=== PATIENT | male | born 1950 | race Caucasian/White ===

== ENCOUNTER → 2017-09-03 | Outpatient (CLI) | payer MEDICARE, OTHER ==
[2017-09-03 12:37] LABS: ALBUMIN 3.9 GM/DL (3.2-5.2); ALBUMIN/GLOBULIN RATIO 1.11 (1.00-1.93); ALKALINE PHOSPHATASE 75 U/L (45-117); ALT/SGPT 100 U/L (12-78); ANION GAP 7 MEQ/L (8-16); AST/SGOT 47 U/L (7-37); BILIRUBIN,TOTAL 0.6 MG/DL (0.2-1.0); BLOOD UREA NITROGEN 12 MG/DL (7-18); CALCIUM LEVEL 9.2 MG/DL (8.8-10.2); CARBON DIOXIDE LEVEL 28 MEQ/L (21-32); CHLORIDE LEVEL 103 MEQ/L (98-107); CHOLESTEROL LEVEL 137 MG/DL (< 200); CHOLESTEROL LEVEL 137 MG/DL (<200); CHOLESTEROL RISK RATIO 2.283 (<5); CPK CREATINE PHOSPHOKINASE 211 U/L (39-308); CREATININE FOR GFR 1.03 MG/DL (0.70-1.30); GLOMERULAR FILTRATION RATE > 60.0 (>49); GLUCOSE, FASTING 94 MG/DL (70-100); HDL CHOLESTEROL 60 MG/DL (>40); LDH LACTATE DEHYDROGENASE 208 U/L (87-241); NON-HDL-C 77 MG/DL; PHOSPHORUS LEVEL 2.9 MG/DL (2.5-4.9); POTASSIUM SERUM 4.2 MEQ/L (3.5-5.1); SODIUM LEVEL 138 MEQ/L (136-145); TOTAL PROTEIN 7.4 GM/DL (6.4-8.2); TRIGLYCERIDES LEVEL 55 MG/DL (<150)
== END ==
LOC: M LAB 11:36
DX: K21.9 Gastro-esophageal reflux disease without esophagitis (principal); Z79.899 Other long term (current) drug therapy
CPT/HCPCS: 82550

== ENCOUNTER → 2018-08-09 | Outpatient (CLI) | payer OTHER, MEDICARE ==
[2018-08-09 13:47] LABS: CHOLESTEROL RISK RATIO 2.693 (<5)
== END ==
LOC: M WUC 10:06
PROVIDERS: ATTEND Internal Medicine
DX: K20.9 Esophagitis, unspecified (principal)

== ENCOUNTER → 2019-05-25 | Outpatient (CLI) | payer OTHER, MEDICARE ==
[2019-05-25 13:44] LABS: ALBUMIN 4.1 GM/DL (3.2-5.2); ALT/SGPT 72 U/L (12-78); BILIRUBIN,TOTAL 0.5 MG/DL (0.2-1.0); BLOOD UREA NITROGEN 17 MG/DL (7-18); CALCIUM LEVEL 9.3 MG/DL (8.8-10.2); CARBON DIOXIDE LEVEL 31 MEQ/L (21-32); CHLORIDE LEVEL 102 MEQ/L (98-107); CREATININE FOR GFR 1.08 MG/DL (0.70-1.30); GLOMERULAR FILTRATION RATE > 60.0 (>42); GLUCOSE, FASTING 102 MG/DL (70-100); POTASSIUM SERUM 4.2 MEQ/L (3.5-5.1); PROSTATIC SPECIFIC AG MONITOR 4.18 NG/ML (< 4.00); SODIUM LEVEL 138 MEQ/L (136-145)
== END ==
LOC: M WUC 09:39
PROVIDERS: ATTEND Internal Medicine
DX: Z12.5 Encounter for screening for malignant neoplasm of prostate (principal); K21.9 Gastro-esophageal reflux disease without esophagitis; I10 Essential (primary) hypertension

== ENCOUNTER → 2020-07-04 | Outpatient (CLI) | payer OTHER, MEDICARE ==
[2020-07-04 10:53] LABS: ALT/SGPT 40 U/L (12-78); BILIRUBIN,TOTAL 0.7 MG/DL (0.2-1.0); BLOOD UREA NITROGEN 18 MG/DL (7-18); CALCIUM LEVEL 9.8 MG/DL (8.8-10.2); CARBON DIOXIDE LEVEL 30 MEQ/L (21-32); CHLORIDE LEVEL 100 MEQ/L (98-107); CHOLESTEROL LEVEL 160 MG/DL (<200); CHOLESTEROL RISK RATIO 2.388 (<5); GLOMERULAR FILTRATION RATE > 60.0 (>42); GLUCOSE, FASTING 108 MG/DL (70-100); HDL CHOLESTEROL 67 MG/DL (>40); LDL CHOLESTEROL 80 MG/DL (<100); NON-HDL-C 93 MG/DL; POTASSIUM SERUM 3.7 MEQ/L (3.5-5.1); SODIUM LEVEL 137 MEQ/L (136-145); TOTAL PROTEIN 7.4 GM/DL (6.4-8.2); TRIGLYCERIDES LEVEL 64 MG/DL (<150)
== END ==
LOC: M WUC 08:07
PROVIDERS: ATTEND Internal Medicine
DX: K21.9 Gastro-esophageal reflux disease without esophagitis (principal); I10 Essential (primary) hypertension; Z12.5 Encounter for screening for malignant neoplasm of prostate
CPT/HCPCS: 36415; 80053; 80061; G0103

== ENCOUNTER → 2020-09-06 | Outpatient (REF) | payer OTHER, MEDICARE ==
[2020-09-06 13:23] LABS: APPEARANCE, URINE CLEAR (CLEAR); BACTERIA, URINE AUTO NEGATIVE (NEGATIVE); BILIRUBIN, URINE AUTO NEGATIVE (NEGATIVE); BLOOD, URINE BLOOD NEGATIVE (NEGATIVE); COLOR, URINE YELLOW (YELLOW); GLUCOSE, URINE (UA) AUTO NEGATIVE (NEGATIVE); KETONE, URINE AUTO NEGATIVE (NEGATIVE); LEUKOCYTE ESTERASE, URINE AUTO NEGATIVE (NEGATIVE); MUCUS, URINE SMALL (NEGATIVE); NITRITE, URINE AUTO NEGATIVE (NEGATIVE); PROTEIN, URINE AUTO NEGATIVE (NEGATIVE); RBC, URINE AUTO 0 /HPF (0-3); SPECIFIC GRAVITY URINE AUTO 1.021 (1.002-1.035); SQUAMOUS EPITHELIAL CELL UR AU 0 /HPF (0-6); UROBILINOGEN, URINE AUTO 0.2 mg/dL (0.0-2.0); WBC, URINE AUTO 0 /HPF (0-3)
== END ==
LOC: M SMT 12:56
PROVIDERS: ATTEND Nurse Practitioner Women's Health
DX: N40.1 Benign prostatic hyperplasia with lower urinary tract symptoms (principal)

== ENCOUNTER → 2020-12-24 | Outpatient (REF) | payer MEDICARE, OTHER | LOC: M SMT PRO 12:52 | PROVIDERS: ATTEND Urology | DX: C61 Malignant neoplasm of prostate (principal) | CPT/HCPCS: 55700; 76942; 88341; 88342; G0416 ==

== ENCOUNTER → 2021-10-02 | Outpatient (CLI) | payer MEDICARE | LOC: M WUC 09:08 | PROVIDERS: ATTEND Urology | DX: C61 Malignant neoplasm of prostate (principal) ==

== ENCOUNTER → 2023-09-13 | Outpatient (CLI) | payer MEDICARE | LOC: M LAB 12:08 | PROVIDERS: ATTEND Internal Medicine Cardiovascular Disease | DX: R07.89 Other chest pain (principal) ==